=== PATIENT | female | born 1995 | race African-American/Black ===

== ENCOUNTER 2017-08-04 14:44 | Observation (INO) ==
[2017-08-04] MEDS ORDERED: NS 1,000 ML IV ONE (15:00)
[2017-08-04] MEDS ORDERED: CHARCOAL Activated 25gm/120ml SUSP PO ONE ×2 (15:00→15:46)
--- OUTSIDE RECORDS SUMMARY | 2017-08-04 15:17 | External Medical Summary ---
:1994 Author Organization [employer] Care Team Providers Name Role Phone Mariangel Miles Provider Role Unavailable Allergies, Adverse Reactions, Alerts Substance Reaction Event Type N.K.D.A. Info Not Available Non Drug Allergy Problems Problem Type Condition Code Onset Dates Condition Status Assessment Encounter for initial prescription Z30.019 Active of contraceptives, unspecified Medications Medication Code Code Instructions Start End Date Status Dosage System Date Norelgestromin- [facility] 57968-05 150-20 MCG/24HR Apr 25, as directed Eth Estradiol 20-01 Transdermal once 2016 a week times 3 weeks, then one off week Procedures Procedure Coding System Code Date OFFICE VISIT, SECURITY AND COMPLIANCE PROJECT MANAGER-LOW COMPLEXITY (30 MIN.) CPT-4 38496 2015 Vital Signs Date/Time: 2015 Height 64.25 in Weight 128.4 lbs Temperature 98.3 F Blood Pressure Diastolic 76 mm Hg Blood Pressure Systolic 113 mm Hg Cardiac Monitoring Heart Rate 70 /min BMI 21.87 Index Respiratory Rate 16 /min Results No Known Results Summary Purpose [employer] Submission
--- OUTSIDE RECORDS SUMMARY | 2017-08-04 15:17 | External Medical Summary ---
:1994 Author Organization [employer] Care Team Providers Name Role Phone Mariangel Miles Provider Role Unavailable Allergies, Adverse Reactions, Alerts Substance Reaction Event Type N.K.D.A. Info Not Available Non Drug Allergy Problems Problem Type Condition Code Onset Dates Condition Status Assessment Encounter for gynecological Z01.411 Active examination (general) (routine) with abnormal findings Medications Medication Code System Code Instructions Start Date End Date Status Dosage Ortho Evra NDC 87383-249 150-20 MCG/24HR Apr 25, as directed 0-01 Transdermal once 2016 a week times 3 weeks, then one off week, Procedures Procedure Coding System Code Date SPECIMEN HANDLING FEE CPT-4 36726 Apr 28, 2015 AFFIRM-CINDY DNA PROBE CPT-4 58940 Apr 28, 2015 WELL ADULT, EST (18-39) CPT-4 57824 Apr 28, 2015 AFFIRM-RO VAGINALIS DNA PROBE CPT-4 07656 Apr 28, 2015 AFFIRM-TRICHOMONAS VAGINAL DNA PROBE CPT-4 86002 Apr 28, 2015 Vital Signs Date/Time: Apr 28, 2015 Height 64.25 in Weight 128.0 lbs Temperature 97.7 F Blood Pressure Diastolic 70 mm Hg Blood Pressure Systolic 106 mm Hg Cardiac Monitoring Heart Rate 100 /min BMI 21.80 Index Respiratory Rate 16 /min Results Name Result Date Reference Range Unit Abnormality Flag Affirm Vaginitis Panel ----Affirm Vaginitis Source: [id number] Panel Cervix/Vaginal Collected: 04/28/15 15:40 Summary Purpose [employer] Submission
--- OUTSIDE RECORDS SUMMARY | 2017-08-04 15:17 | External Medical Summary ---
:1994 Author Organization [employer] Care Team Providers Name Role Phone Mariangel Miles Provider Role Unavailable Allergies No Known Allergies Problems No Known Problems Medications Medication Code System Code Instructions Start Date End Date Status Dosage Ortho Evra [facility] [address]-421 150-20 MCG/24HR Apr 25, as directed 0-01 Transdermal once 2016 a week times 3 weeks, then one off week, Results No Known Results Summary Purpose [employer] Submission
--- OUTSIDE RECORDS SUMMARY | 2017-08-04 15:17 | External Medical Summary ---
:1994 Author Organization [employer] Care Team Providers Name Role Phone Mariangel Milse Provider Role Unavailable Allergies No Known Allergies Problems No Known Problems Medications Medication Code System Code Instructions Start Date End Date Status Dosage Flagyl [facility] [address] 500 MG Orally BID May 02, May 09, 1 tablet -2015 Results No Known Results Summary Purpose [employer] Submission
--- OUTSIDE RECORDS SUMMARY | 2017-08-04 15:17 | External Medical Summary ---
:1994 Author Organization [employer] Care Team Providers Name Role Phone Mariangel Miles Provider Role Unavailable Allergies No Known Allergies Problems No Known Problems Medications Medication Code System Code Instructions Start Date End Date Status Dosage Flagyl [facility] [address] 500 MG Orally BID August 09August 16, 1 tablet -2015 Results No Known Results Summary Purpose [employer] Submission
--- OUTSIDE RECORDS SUMMARY | 2017-08-04 15:17 | External Medical Summary ---
:1994 Author Organization [employer] Care Team Providers Name Role Phone Mariangel Miles Provider Role Unavailable Allergies No Known Allergies Problems No Known Problems Medications No Known Medications Results No Known Results Summary Purpose [employer] Submission
--- OUTSIDE RECORDS SUMMARY | 2017-08-04 15:17 | External Medical Summary ---
:1994 Author Organization [employer] Care Team Providers Name Role Phone Mariangel Miles Provider Role Unavailable Allergies No Known Allergies Problems Problem Type Condition Code Onset Dates Condition Status Assessment Encounter for initial prescription Z30.019 Active of contraceptives, unspecified Medications Medication Code System Code Instructions Start Date End Date Status Dosage Ortho Evra [facility] [address] 150-20 MCG/24HR Apr 25, as directed 0-01 Transdermal once 2016 a week times 3 weeks, then one off week, Results No Known Results Summary Purpose [employer] Submission
--- OUTSIDE RECORDS SUMMARY | 2017-08-04 15:17 | External Medical Summary ---
:1994 Author Organization [employer] Care Team Providers Name Role Phone Mariangel Miles Provider Role Unavailable Allergies, Adverse Reactions, Alerts Substance Reaction Event Type N.K.D.A. Info Not Available Non Drug Allergy Problems Problem Type Condition Code Onset Dates Condition Status Assessment Exposure to venereal disease Z20.2 Active Medications Medication Code System Code Instructions Start Date End Date Status Dosage Azithromycin [facility][NOTE 3] 83478-037 1 GM Orally Jan 16, as directed 10-13 Procedures Procedure Coding System Code Date URINALYSIS WITH MICROSCOPIC CPT-4 50430 Jan 17, 2016 GENITAL CULTURE CPT-4 62669 Jan 17, 2016 OFFICE VISIT, EST-LOW COMPLEXITY (15 MIN.) CPT-4 56945 Jan 17, 2016 Vital Signs Date/Time: Jan 17, 2016 Temperature 98.2 F Height 64.25 in Weight 122 lbs Blood Pressure Diastolic 60 mm Hg Blood Pressure Systolic 110 mm Hg Cardiac Monitoring Heart Rate 66 /min BMI 20.78 Index Oximetry 99 % Respiratory Rate 14 /min Results Name Result Date Reference Range Unit Abnormality Flag Urinalysis with Microscopic ----Epithelial Cells 5-10 [id number] /HPF ----WBC, Urine 5-10 [id number] 0-4 /HPF * ----Hyaline Casts 4-6 79678984 0-3 /LPF * ----Specific [place] 1.029 [id number] 1.003-1.030 ----Bilirubin Negative 26523911 Negative ----Nitrites Negative 32687932 Negative ----Protein Negative [id number] Negative ----Blood Negative [id number] Negative ----Urobilinogen 0.2 90185132 <1.0 mg/dL ----pH 5.0 28212160 5.0-8.0 ----RBC, Urine 0-4 [id number] 0-4 /HPF ----Leukocyte Esterase Negative [id number] Negative ----Appearance Turbid 82316133 * ----Color Yellow [id number] ----Glucose, Urine Negative 20160117 Negative ----Ketones Negative 20160117 Negative Summary Purpose [employer] Submission
--- OUTSIDE RECORDS SUMMARY | 2017-08-04 15:17 | External Medical Summary ---
:1994 Author Organization [employer] Care Team Providers Name Role Phone Mariangel Miles Provider Role Unavailable Allergies, Adverse Reactions, Alerts Substance Reaction Event Type N.K.D.A. Info Not Available Non Drug Allergy Problems Problem Type Condition Code Onset Dates Condition Status Assessment Acute vaginitis N76.0 Active Assessment Other specified noninflammatory N89.8 Active disorders of vagina Assessment Encounter for initial prescription Z30.013 Active of injectable contraceptive Medications No Known Medications Procedures Procedure Coding System Code Date URINALYSIS WITH MICROSCOPIC CPT-4 33826 August 02, 2015 OFFICE VISIT, EST-LOW COMPLEXITY (15 MIN.) CPT-4 92157 August 02, 2015 TEST, IN HOUSE CPT-4 80450 August 02, 2015 AFFIRM-TRICHOMONAS VAGINAL DNA PROBE CPT-4 79243 August 02, 2015 AFFIRM-CINDY DNA PROBE CPT-4 08748 August 02, 2015 AFFIRM-RO VAGINALIS DNA PROBE CPT-4 85253 August 02, 2015 Vital Signs Date/Time: August 02, 2015 Temperature 98.5 F Height 64.25 in Weight 123.8 lbs Blood Pressure Diastolic 62 mm Hg Blood Pressure Systolic 95 mm Hg Cardiac Monitoring Heart Rate 70 /min BMI 21.08 Index Respiratory Rate 16 /min Results Name Result Date Reference Range Unit Abnormality Flag Urinalysis with Microscopic ----Epithelial Cells 2-5 [id number] /HPF ----WBC, Urine 2-4 94647534 0-4 /HPF ----Specific [place] 1.029 89250536 1.003-1.030 ----Bilirubin Negative 78978248 Negative ----Nitrites Negative 61404796 Negative ----Protein Negative 52126541 Negative ----Blood Negative [id number] Negative ----Urobilinogen 0.2 25705956 <1.0 mg/dL ----pH 5.0 09221972 5.0-8.0 ----RBC, Urine 0-4 11030264 0-4 /HPF ----Leukocyte Esterase Negative 20150802 Negative ----Appearance Turbid 20150802 * ----Color Yellow 20150802 ----Glucose, Urine Negative 20150802 Negative ----Ketones Negative [id number] Negative Summary Purpose [employer] Submission
--- OUTSIDE RECORDS SUMMARY | 2017-08-04 15:18 | External Medical Summary | Continuity of Care Document ---
:1994 Author Organization [facility] Allergies Active Description Code Type Severity Reaction Onset Reported/ Identified Relationship Clinical to Patient Status Yes No Known 90956 3 N/A N/A Drug 0 Allergies Yes Penicillins amoxi Aller S hives and 09/13/2015 cilli gy difficult n y breathing Yes No Known No Aller N/A N/A 05/31/2016 Allergies Known gy Aller gies Medications Medication Packaging Start Date Stop Date Route Dosage Sig Packet 09/26/2015 AZITHROMYCIN 6 take 1 packet by oral route dissolved in 2 ounces of water as a single dose PUFF 09/27/2015 1 Albuterol Sulfate Q4H Pnv TAB 09/27/2015 1 with DAILY Ca,No.74/Iron/FA PUFF 09/27/2015 1 Fluticasone BID Propionate SPRAY 09/27/2015 1 Fluticasone DAILY Propionate MG 09/27/2015 10 Montelukast DAILY Sodium Tablet 10/12/2015 ZITHROMAX 6 take 2 tablet by oral route once. Repeat. 1 10/12/2015 NEXPLANON 7 PRESCRIBED Tablet 10/13/2015 ZITHROMAX 6 take 2 tablet by oral route once. Repeat. 05/31/2016 PO 250 mg O Azithromycin Package 08/14/2016 SPRINTEC take 1 tablet by oral route every day Problems Date Dx Coded Attending Type Code Diagnosis Diagnosed By 09/27/2015 Harvey Luis O03.1 Incomplete with delayed or excessive hemo 09/28/2015 Harvey Luis O03.1 Incomplete with delayed or excessive hemo Procedures There is no data. Results Test Result Range L160.0105 - 09/26/15 20:06 INR 1.50 0.81-1.09 L160.0110 - 09/26/15 20:06 PTT 32.7 SEC 24-36 L100.0050 - 09/26/15 20:07 WBC - WHITE BLOOD COUNT 4.4 T/MM3 4.5-11.0 RED BLOOD COUNT 3.87 M/MM3 4.00-5.20 HGB - HEMOGLOBIN 10.9 GM/DL 12-16 HCT - HEMATOCRIT 32.8 % 36-46 MEAN CORPUSCULAR VOLUME 84.8 UM3 80-100 MEAN CORPUSCULAR HGB 28.2 UUG 26-34 MEAN CORPUSCULAR HGB CONC(MCHC 33.2 GM/DL 31-37 RDW STANDARD DEVIATION 37.8 FL 36.9-50.2 PLT - PLATELET COUNT 197 T/MM3 130-400 MEAN PLATELET VOLUME 9.9 UM3 9.4-12.4 NEUTROPHILS % (AUTO) 60.3 % 33-66 LYMPHOCYTES % (AUTO) 27.9 % 23-45 MONOCYTES % (AUTO) 10.0 % 0-9.0 EOSINOPHILS % (AUTO) 1.4 % 0-4 BASOPHILS % (AUTO) 0.2 % 0-2 IMMATURE GRANULOCYTE % (AUTO) 0.2 % 0.0-0.5 NEUTROPHILS # (AUTO) 2.6 T/MM3 1.8-7.7 LYMPHOCYTES # (AUTO) 1.2 T/MM3 1-4.8 MONOCYTES # (AUTO) 0.4 T/MM3 0-0.8 EOSINOPHILS # (AUTO) 0.1 T/MM3 0-0.5 BASOPHILS # (AUTO) 0.0 T/MM3 0-0.2 IMMATURE GRANULOCYTE # (AUTO) 0.01 T/MM3 0.00-0.03 L200.3940 - 09/26/15 20:07 PREG QUAL, SERUM TEST POSITIVE NEGATIVE L200.0050 - 09/26/15 20:07 ICTERUS < 2 0-7 HEMOLYSIS < 15 0-25 L200.3902 - 09/26/15 20:07 HCG-QUANTITATIVE 2062.0 mIU/mL B100.0700 - 09/26/15 20:08 BLOOD TYPE O POSITIVE ANTIBODY SCREEN NEGATIVE B110.1099 - 09/26/15 20:08 BBT5 O POSITIVE L749.2999 - 02/23/16 14:30 SVSV80R Negative L749.5000 - 02/23/16 14:30 LHEPCAB-A Negative M750.2640 - 02/23/16 14:30 L750.2300 - 02/23/16 14:30 C.TRACH SOURCE URINE CHLAMYDIA TRACHOMATIS - AMS NEGATIVE NEGATIVE NEISSERIA GONORRHOEAE - AMS NEGATIVE NEGATIVE N.GONORRHOEAE SOURCE - AMS URINE L905.0701 - 05/31/16 10:39 LUSPEC-C CLEANCATCH-MIDSTREAM LUCOL-C BROWN YELLOW LUTURB-C CLOUDY CLEAR LUSG-C 1.025 1.015-1.025 LUPH-C 5.0 5.0-8.0 LULEU-C NEGATIVE NEGATIVE LUNIT-C NEGATIVE NEGATIVE LUPRO-C NEGATIVE NEGATIVE LUGLU-C NEGATIVE NEGATIVE LUKET-C NEGATIVE NEGATIVE LUURO-C NORMAL EU/DL NORMAL LUBILI-C NEGATIVE NEGATIVE LUBLO-C NEGATIVE NEGATIVE L905.0625 - 05/31/16 10:39 LUPREGT-C NEGATIVE NEGATIVE L750.2300 - 05/31/16 11:04 C.TRACH SOURCE URINE CHLAMYDIA TRACHOMATIS - AMS Positive Negative NEISSERIA GONORRHOEAE - AMS Negative Negative N.GONORRHOEAE SOURCE - AMS URINE Encounters ACCT Visit Discharge Status Pt. Type Provider Facility Loc./Unit Complaint No. Date/Time [id number] 08/14/2016 08/14/2016 CLS Outpatient Kang, 13:15:00 23:59:59 [place] Art [id number] 10/14/2015 10/14/2015 CLS Outpatient Kang, 08:21:00 23:59:59 Daly Art [id number] 10/13/2015 10/13/2015 CLS Outpatient Kang, 11:47:00 23:59:59 Daly Art [id number] 10/12/2015 10/12/2015 CLS Outpatient Kang, 16:15:00 23:59:59 Daly Kaelyn [id number] 09/26/2015 09/26/2015 CLS Outpatient Toby, 21:48:00 23:59:59 Harvey Allen [id number] 09/26/2015 09/26/2015 CLS Outpatient Toby, 08:35:00 23:59:59 Harvey Allen [id number] 09/22/2015 09/22/2015 CLS Outpatient Toby, 14:15:00 23:59:59 Harvey Allen [id number] 08/30/2015 08/30/2015 [facility] Outpatient Munguia, 14:54:00 23:59:59 Nora Delgadillo [id number] 05/31/2016 05/31/2016 DIS Emergency Krishna [facility] [address] 10:16:00 11:10:00 [facility] [id number] 02/23/2016 02/23/2016 DIS Emergency Krishna [facility] [address] 13:04:00 14:10:00 [facility] [id number] 01/31/2016 01/31/2016 DIS Emergency Krishna [facility] [address] 13:40:00 14:30:00 [facility] [id number] 09/13/2015 09/13/2015 [place] [id number] 16:17:00 18:44:00 [facility] [id number] 08/04/2017 Document [id number] 14:56:00 Registration [id number] 09/26/2015 Document [id number] 20:05:00 Registration
[2017-08-04] MEDS ORDERED: ONDANSETRON 4 MG/2 ML INJECTION IVP ONE (15:46)
--- NOTE | 2017-08-04 16:19 | Emergency Department Report ---
Overdose HPI - General Chief Complaint: Overdose <eb 08/04/17 16:59> Stated Complaint: od/suicidal <eb 08/04/17 16:59> Time Seen by Provider: 08/04/17 14:55 <08/04/17 16:59> Source: patient, EMS <Joy Garcia 08/04/17 16:21> Mode of arrival: EMS <JoseJoy Russo 08/04/17 16:21> Limitations: altered mental status <JoseJoy Alejandro Rafaela 08/04/17 16:21> - History of Present Illness HPI Narrative: PT presents per EMS after having taken approximately 15 sleep aids which contain 25mg of Diphenhydramine. EMS reports ingestion was with intent to harm self. PT concurs however is unable to detail rationale. <Joy Garcia 08/04/17 16:21> MD complaint: intentional overdose <Joy Garcia 08/04/17 16:21> Onset (ago): minute(s) <Joy Garcia 08/04/17 16:21> diphenhydramine Strength of Substance: 25 <Joy Garcia 08/04/17 16:21> Number of Pills Ingested: 15 <Joy Garcia 08/04/17 16:21> Total Dose: 375 <Joy Garcia 08/04/17 16:49> Intent: unwilling to say <Joy Garcia 08/04/17 16:21> How Overdose Was Discovered: family/friend present at time <Joy Garcia 08/04/17 16:21> - Related Data Home Medications Medication Instructions Recorded Confirmed No known Home medications [No home 08/04/17 08/04/17 meds] <eb 08/04/17 16:59> Allergies Allergy/AdvReac Type Severity Reaction Status Date / Time No Known Allergies Allergy Verified 08/04/17 15:42 <eb 08/04/17 16:59> Review of Systems Limitations: ROS unobtainable due to patient's medical condition <Joy Garcia 08/04/17 16:21> Physical Exam - Limitations Limitations: altered mental status <Joy Garcia 08/04/17 16:21> - General General appearance: lethargic <Joy Garcia 08/04/17 16:21> - Normal Exams: Head:: Normocephalic without trauma <Joy Garcia 08/04/17 16:21> Chest/Respirations:: Clear all riojas, with good airflow, and symmetry bilaterally <Joy Garcia 08/04/17 16:21> Abdomen:: Bowel sounds positive, soft, non-tender, non-distended <Joy Garcia 08/04/17 16:21> Musculoskeletal:: No tenderness, or deformity noted, good range of motion, all extremities <Joy Garcia 08/04/17 16:21> Integumentary:: No rashes <Joy Garcia 08/04/17 16:21> Neurological:: Patient is alert, and oriented, cranial nerves, motor/sensory/ cerebellar, exams w/o gross deficits, to observation <Joy Garcia 16:21> Psychiatric:: Patient exhibits, appropriate attention, emotion and affect < Joy Garcia 08/04/17 16:21> - Eye Eye exam: Present: normal appearance, PERRL (slow and pinpoint) <Joy Garcia 08/04/17 16:21> - Cardiovascular Cardiovascular exam: Present: regular rate, tachycardia <Joy Garcia 08/04/17 16:21> Course Vital Signs Temperature 97.9 F 08/04/17 14:45 Pulse Rate 122 H 08/04/17 14:45 Respiratory Rate 14 08/04/17 14:45 Blood Pressure 170/112 H 08/04/17 14:45 Pulse Oximetry 100 08/04/17 14:45 Temperature 97.9 F 08/04/17 14:45 Pulse Rate 122 H 08/04/17 14:45 Respiratory Rate 14 08/04/17 14:45 Blood Pressure 170/112 H 08/04/17 14:45 Pulse Oximetry 100 08/04/17 14:45 <Sony Michel M - 08/04/17 16:59> Overdose - MDM Narrative Medical decision making narrative: NG placed for gastric lavage with significant amount of pill fragments returned. After a period of intermittent suction pt given 25 of Charcoal. Vital signs improving from 120-130 to 80-90s and BP trending downward. Pt is much more alert and interactive with and after NG placement. Labs reviewed. Hospitalist notified and will admit for overdose. <JoseJoy - 08/04/17 16:49> - Differential Diagnosis Likely: suicide attempt by multiple drug overdose, drug overdose <Jaqueline Garciaan Alejandro - 08/04/17 16:21> - Lab Data Attestation: I reviewed the patient's lab results. <NicaJaqueline paigean - 08/04 16:49> Result diagrams: 08/04/17 14:20 08/04/17 14:20 [facility] 08/04/17 16:59> Lab Results 08/04/17 08/04/17 08/04/17 Range/Units 14:20 14:20 14:20 WBC 3.5 L (4.5-11.0) T/MM3 RBC 4.99 (4.00-5.20) M/MM3 Hgb 13.7 (12-16) GM/DL Hct 41.4 (36-46) % MCV 83.0 (80-100) UM3 MCH 27.5 (26-34) UUG MCHC 33.1 (31-37) GM/DL RDW Std Deviation 36.4 L (36.9-50.2) FL Plt Count 262 (130-400) T/MM3 MPV 10.5 (9.4-12.4) UM3 Immature Gran % (Auto) 0.0 (0.0-0.5) % Neut % (Auto) 36.5 (33-66) % Lymph % (Auto) 53.8 H (23-45) % Kerr % (Auto) 7.7 (0-9.0) % Eos % (Auto) 1.7 (0-4) % Baso % (Auto) 0.3 (0-2) % Neut # (Auto) 1.3 L (1.8-7.7) T/MM3 Lymph # (Auto) 1.9 (1-4.8) T/MM3 Kerr # (Auto) 0.3 (0-0.8) T/MM3 Eos # (Auto) 0.1 (0-0.5) T/MM3 Baso # (Auto) 0.0 (0-0.2) T/MM3 Abs Immat Gran (auto) 0.00 (0.00-0.03) T/MM3 Turbidity < 20 (0-20) Sodium 148 H (134-144) MEQ/L Potassium 3.5 L (3.6-5) MEQ/L Chloride 106 (98-107) MEQ/L Carbon Dioxide 26 (22-30) MEQ/L Anion Gap 16 H (5-15) meq/L BUN 9.0 (7-17) MG/DL Creatinine 0.8 (0.7-1.2) mg/dL GFR Calculation 89 BUN/Creatinine Ratio 11 (6-26) RATIO Glucose 88 (65-110) MG/DL Calculated Osmolality 282 H (261-280) MOSM/KG Calcium 9.5 (8.4-10.2) MG/DL Total Bilirubin 0.60 (0.20-1.30) MG/DL Icterus Index < 2 (0-7) AST 26 (14-36) U/L ALT 19 (1-35) U/L Alkaline Phosphatase 46 (38-126) U/L Total Protein 8.6 H (6.3-8.2) g/dL Albumin 5.0 (3.5-5.0) g/dL Globulin 3.6 (2.4-3.6) G/DL Albumin/Globulin Ratio 1.4 (1.1-2.2) RATIO TSH 1.27 (0.47-4.68) mIU/L Specimen Hemolysis < 15 (0-25) Ur Collection Type Urine Color (YELLOW) Urine Clarity Urine pH (5.0-8.0) Ur Specific [place] (1.015-1.025) Urine Protein (NEGATIVE) Urine Glucose (UA) (NEGATIVE) Urine Ketones (NEGATIVE) Urine Occult Blood (NEGATIVE) Urine Nitrate (NEGATIVE) Urine Bilirubin (NEGATIVE) Urine Urobilinogen (NORMAL) EU/DL Ur Leukocyte Esterase (NEGATIVE) Urine RBC (0-3) /HPF Urine WBC (0-5) /HPF Ur Squamous Epith Cells Urine Bacteria (NEGATIVE) Ur Culture Indicated? Urine Test (Negative) Salicylates < 1.0 L (2-20) MG/DL Urine Opiates Screen ng/mL Ur Oxycodone Screen ng/mL Urine Methadone Screen ng/mL Ur Propoxyphene Screen ng/mL Acetaminophen < 10 L (10-30) UG/ML Ur Barbiturates Screen ng/mL U Tricyclic Antidepress ng/mL Ur Phencyclidine Scrn ng/mL Ur Amphetamines Screen ng/mL U Methamphetamines Scrn ng/mL U Benzodiazepines Scrn ng/mL Urine Cocaine Screen ng/mL U Cannabinoids Screen ng/mL 08/04/17 08/04/17 08/04/17 Range/Units 16:05 16:05 16:05 WBC (4.5-11.0) T/MM3 RBC (4.00-5.20) M/MM3 Hgb (12-16) GM/DL Hct (36-46) % MCV (80-100) UM3 MCH (26-34) UUG MCHC (31-37) GM/DL RDW Std Deviation (36.9-50.2) FL Plt Count (130-400) T/MM3 MPV (9.4-12.4) UM3 Immature Gran % (Auto) (0.0-0.5) % Neut % (Auto) (33-66) % Lymph % (Auto) (23-45) % Kerr % (Auto) (0-9.0) % Eos % (Auto) (0-4) % Baso % (Auto) (0-2) % Neut # (Auto) (1.8-7.7) T/MM3 Lymph # (Auto) (1-4.8) T/MM3 [place] # (Auto) (0-0.8) T/MM3 Eos # (Auto) (0-0.5) T/MM3 Baso # (Auto) (0-0.2) T/MM3 Abs Immat Gran (auto) (0.00-0.03) T/MM3 Turbidity (0-20) Sodium (134-144) MEQ/L Potassium (3.6-5) MEQ/L Chloride (98-107) MEQ/L Carbon Dioxide (22-30) MEQ/L Anion Gap (5-15) meq/L BUN (7-17) MG/DL Creatinine (0.7-1.2) mg/dL GFR Calculation BUN/Creatinine Ratio (6-26) RATIO Glucose (65-110) MG/DL Calculated Osmolality (261-280) MOSM/KG Calcium (8.4-10.2) MG/DL Total Bilirubin (0.20-1.30) MG/DL Icterus Index (0-7) AST (14-36) U/L ALT (1-35) U/L Alkaline Phosphatase (38-126) U/L Total Protein (6.3-8.2) g/dL Albumin (3.5-5.0) g/dL Globulin (2.4-3.6) G/DL Albumin/Globulin Ratio (1.1-2.2) RATIO TSH (0.47-4.68) mIU/L Specimen Hemolysis (0-25) Ur Collection Type Urine, cath straight Urine Color Yellow (YELLOW) Urine Clarity Clear Urine pH 7.0 (5.0-8.0) Ur Specific [place] <=1.005 L (1.015-1.025) Urine Protein Negative (NEGATIVE) Urine Glucose (UA) Negative (NEGATIVE) Urine Ketones Negative (NEGATIVE) Urine Occult Blood 3+ A (NEGATIVE) Urine Nitrate Negative (NEGATIVE) Urine Bilirubin Negative (NEGATIVE) Urine Urobilinogen 0.2 (NORMAL) EU/DL Ur Leukocyte Esterase Negative (NEGATIVE) Urine RBC 3-5 H (0-3) /HPF Urine WBC 1-3 (0-5) /HPF Ur Squamous Epith Cells 5-10 Urine Bacteria Trace H (NEGATIVE) Ur Culture Indicated? Cult not indicated Urine Test Negative (Negative) Salicylates (2-20) MG/DL Urine Opiates Screen Negative ng/mL Ur Oxycodone Screen Negative ng/mL Urine Methadone Screen Negative ng/mL Ur Propoxyphene Screen Negative ng/mL Acetaminophen (10-30) UG/ML Ur Barbiturates Screen Negative ng/mL U Tricyclic Antidepress Negative ng/mL Ur Phencyclidine Scrn Negative ng/mL Ur Amphetamines Screen Negative ng/mL U Methamphetamines Scrn Negative ng/mL U Benzodiazepines Scrn Negative ng/mL Urine Cocaine Screen Negative ng/mL U Cannabinoids Screen Negative ng/mL <AugustSony M - 08/04/17 16:59> - EKG Data EKG #1 EKG attestation: Yes: I reviewed and interpreted this EKG. <08/04 16:59> Yes: I reviewed and interpreted this EKG. <JoseJoy 08/04/17 16:49> EKG shows normal: sinus rhythm, axis, intervals, QRS complexes <eb 16:59> sinus rhythm <SanazlydiaJoy 08/04/17 16:49> Rate: tachycardia <08/04/17 16:59> tachycardia <JoseJoy 08/04/17 16:49> Rhythm: SVT <SanazlydiaJoy 08/04/17 16:49> When compared to previous EKG there are: previous EKG unavailable <08/04/17 16:59> Interpretation: nonspecific ST-T wave changes <08/04/17 16:59> Disposition Clinical Impression: Drug overdose Qualifiers: Encounter type: initial encounter Injury intent: intentional self-harm Qualified Code(s): T50.902A - Poisoning by unspecified drugs, medicaments and biological substances, intentional self-harm, initial encounter <08/04/17 16:59> [place]: [place] [facility] [place] <08/04/17 16:59> Condition: Improved <08/04/17 16:59> Instructions: <08/04/17 16:59> Prescriptions: No Action No known Home medications [No home meds] 0 #0 misc <08/04/17 16:59> Referrals: Mariangel Miles APRN [Primary Care Provider] - <eb 08/04/17 16:59> Forms: <08/04/17 16:59> Time of Disposition: 16:49 <Joy Garcia 08/04/17 16:49> - Seen By: midlevel <Joy Garcia 08/04/17 16:49>
--- NOTE | 2017-08-04 17:02 | History & Physical Report ---
History of Present Illness Date: 08/04/17 Chief complaint: intentional overdose HPI: She is 22-year-old female who is brought to the emergency room today by EMS for evaluation following an intentional overdose. Reported that patient ingested 15- 17 tablets of Benadryl 25 milligrams per to have. She initially did verbalize that she intentionally overdosed in an attempts to hurt herself. Basic labs were obtained. Sodium was found with elevated at 148, potassium 3.5. Urinalysis shows 3+ blood, 3-5 RBCs with trace bacteria. Urine toxicology is negative. Initially. Patient was tachycardic heart rate in the 122. NG tube was placed and patient was given 25 grams of activated charcoal. IV fluids bolus of 1 liter was initiated. Patient remained somewhat somnolent, unable to answer questions. Given intention renal overdose. The hospitalist services were contacted and accepted patient for admission to the ICU as an outpatient observation. Review of Systems ROS unobtainable: due to mental status Past Medical History Medical History Updates: Asthma Surgical History: D & C- 2015 Family History: Unable to Obtain - Social History Substance use type: does not use Medications Home Medications Medication Instructions Recorded Confirmed Type No known Home medications [No home 08/04/17 08/04/17 History meds] Allergies Allergy/AdvReac Type Severity Reaction Status Date / Time No Known Allergies Allergy Verified 08/04/17 15:42 Exam Vital Signs: Temperature 97.9 F 08/04/17 14:45 Pulse Rate 122 H 08/04/17 14:45 Respiratory Rate 14 08/04/17 14:45 Blood Pressure 170/112 H 08/04/17 14:45 Pulse Oximetry 100 08/04/17 14:45 Height/Weight/BMI: Height 1.63 m Weight 60 kg - Constitutional Present: mild distress, well nourished, well developed - Routine HEENT Exam ENT: Present: mucous membranes moist, dentition normal Comments: Pupils sluggish - Routine Respiratory Exam Present: CTA bilaterally. Absent: wheezes - Routine Cardiovascular Exam Present: RRR, S1, S2. Absent: murmur - Routine Abdominal Exam Present: soft, normoactive bowel sounds, non distended. Absent: tenderness - Routine Extremities Exam Present: normal capillary refill - Routine Skin Exam Present: dry, warm - Routine Neurological Exam Present: altered mental status Non verbal - does not follow commands - Routine Psychiatric Exam Present: depressed, unable to assess Comments: Flat affect- Non verbal Results - Labs CBC & Chem 7: 08/04/17 14:20 08/04/17 14:20 Assessment and Plan (1) Intentional diphenhydramine overdose Current visit: Yes Status: Acute Assessment and Plan: Impression Intentional diphenhydramine overdose Altered mentation Tachycardia Plan Admit patient to ICU under the care of Dr. guzmán for intentional overdose with altered mentation. NG tube is placed in the emergency room. Patient was given 25 grams of oral charcoal. Tachycardia has improved with IV fluids. Continue to monitor on telemetry 1/2 NS with 20 KCL for hydration Zofran available as needed for nausea Check CBC and BMP tomorrow morning to follow blood counts, renal function and electrolytes Once patient is medically stable. She will need psychiatric evaluation and recommendations. SCDs to the lateral lower extremity for DVT prophylaxis. Will discuss further orders and plan of care with attending, Dr Waggoner It appears patient's primary care is [facility] Difficult to obtain any further information as patient is currently nonverbal DVT Prophylaxis: SCD's Resuscitation Status: Full Code - Time spent with patient Time with patient PN: 35 minutes - Physician Narrative Narrative: Date: 08/04/17 Time: 1655 Hospital Course Summary Disclaimer: The visit summary below is not to be considered part of the above Progress Note. Hospital Course: Impression Intentional diphenhydramine overdose Altered mentation Tachycardia Plan Admit patient to ICU under the care of Dr. guzmán for intentional overdose with altered mentation. NG tube is placed in the emergency room. Patient was given 25 grams of oral charcoal. Tachycardia has improved with IV fluids. Continue to monitor on telemetry 1/2 NS with 20 KCL for hydration Zofran available as needed for nausea Check CBC and BMP tomorrow morning to follow blood counts, renal function and electrolytes Once patient is medically stable. She will need psychiatric evaluation and recommendations. SCDs to the lateral lower extremity for DVT prophylaxis. Will discuss further orders and plan of care with attending, Dr Waggoner It appears patient's primary care is [facility] Difficult to obtain any further information as patient is currently nonverbal
[2017-08-04] MEDS ORDERED: ONDANSETRON 4 MG/2 ML INJECTION IVP PRN (17:34)
[2017-08-04 17:40] VITALS: BMI 22.1
[2017-08-04] MEDS: 1/2 NS with KCL 20mEq 1,000 ML IV SCH (17:57)
[2017-08-04] MEDS: ACETAMINOPHEN 500 MG TABLET PO PRN (23:43)
[2017-08-05] MEDS: 1/2 NS with KCL 20mEq 1,000 ML IV SCH (03:32)
--- NOTE | 2017-08-05 09:23 | Neuropsychiatric Consult ---
[facility] Date: 08/05/17 Requesting Physician: Kina Perry Reason for Consultation: Safety assessment Start Time: 10:00 Stop Time: 10:40 History of Present Illness: Patient is a 22-year-old single, part-time employed, -Al[place]ian female who was admitted [place] [facility] [place]04[place]17 after a suicide attempt by overdose on #15- 17 Benadryl 25mg tablets. Patient has admitted that this was an intentional act of self harm. Psychiatry was consulted for a safety assessment. Patient was cooperative and easily engaged during interview. She endorses many recent stressors. She moved to [place] with her 4-year-old son's father ~3 years ago and thus the majority of her family is in [place]. She states that many of her younger siblings are either struggling or in trouble, her mother is unstable and her father has been in poor health and she worries frequently about all of them. She has now from her son's father since the move and it sounds like this relationship is a bit tumultuous, but she has no other support here or in [place]. (Patient and her siblings were previously in foster care and had to separate after her grandmother .) Her son lives with her but his father is involved in his life as well. Patient states that she has had poor sleep for the past 2 weeks, with frequent nighttime wakenings. She feels very alone and has limited motivation to do things, decreased energy, and decreased appetite. She states she does not have any friends here to spend time with. She also endorses frequent anxiety. She denies HI, paranoia or AVH. She does say she feels like she can "feel her son's father's presence" in her room at night even when he was not there. She says that last had SI months ago (prior to night of admission) but didn't act on it at that time. Patient denies any hx of symptoms consistent with bipolar disorder or PTSD. Past psych hx: Patient was hospitalized for ~2 weeks as an adolescent as she was scratching and had SI after her parents' divorce. She feels symptoms after recent breakup were very similar to that time in her life. She is unsure of diagnoses or medications used. She denies any current self-harming. She denies any current/recent psychotropic medication use. She denies any other suicide attempts. Depression: Increased Anxiety, Loss of Interest in Activities, Isolating Oneself From Friends and Family, Increased Fatigue, Difficulty Sleeping, Sleeping More Than Usual (during the day), Recurrent Thoughts of or Suicide, Changes in Appetite PFSH Patient Stated Medical History Depression Yes Medical History Updates: Asthma Surgical History: D & C- 2016 Family History: Patient states her mother has been diagnosed with bipolar disorder and her brother was also psychiatrically hospitalized after their parents' divorce. - Social History Smoking status: Never smoker Substance use type: does not use Alcohol intake frequency: other (States that she drinks "every once in a while" but did get intoxicated ~2 days prior to admission) Housing: apartment Household members: children (4-year-old son) Current occupational status: employed (part-time at [employer]) Does patient use chewing tobacco?: No Social history: Patient dropped out of school in the 10th grade. She was in the foster system, along with her other siblings. She moved from [place] to [place] with her son 's father ~3 years ago. Her son is now 4 and lives with her primarily. She works part-time at [employer]. She and her son's father have but continue to have frequent contact as he is involved in their son's life. Review of Systems - Psychiatric Psychiatric: Present: as per [facility] Mental Status Exam Vitals: Last Vital Signs Temp 98.6 F 08/05/17 04:00 Pulse 54 L 08/05/17 07:52 Resp 14 08/05/17 06:30 BP 117/74 08/05/17 06:01 Pulse Ox 99 08/05/17 06:30 Height: 1.63 m Weight: 58.4 kg - Mental Status Exam Muscle Strength/Tone: Normal Dressing: Casual Grooming: Good Attitude: Cooperative Motor Activity: Normal Eye Contact: Good Speech: Normal Volume: Normal Rhythm: Appropriate Rhythm Sensory: Alert Orientation: Oriented X4 Mood: Depressed Affect: Sad Rate of Thoughts: Appropriate Rate Thought Organization: Organized Associations: Intact Abstract Reasoning: Intact, able to abstract Thought Content: Ruminations Perception/Psychotic: Perception Normal Language: Naming Intact Fund of Knowledge: Appropriate (Average; has 10th grade education) Memory: Grossly Intact Suicidal Ideation: Other (s/p suicide attempt by overdose on Benadryl) Homicidal Ideation: Denies Insight: Limited Judgement: Limited Impulse Control: Fair - Laboratory Result Diagrams: 08/05/17 04:40 08/05/17 04:40 Laboratory Results - last 24 hr 08/05/17 08/05/17 04:40 04:40 WBC 4.7 RBC 3.72 L Hgb 10.2 L D Hct 31.6 L D MCV 84.9 MCH 27.4 MCHC 32.3 RDW Std Deviation 36.2 L Plt Count 187 MPV 10.0 Immature Gran % (Auto) 0.2 Neut % (Auto) 37.1 Lymph % (Auto) 53.1 H Runnels % (Auto) 8.1 Eos % (Auto) 1.3 Baso % (Auto) 0.2 Neut # (Auto) 1.7 L Lymph # (Auto) 2.5 Runnels # (Auto) 0.4 Eos # (Auto) 0.1 Baso # (Auto) 0.0 Abs Immat Gran (auto) 0.01 Turbidity < 20 Sodium 143 Potassium 3.6 Chloride 110 H Carbon Dioxide 26 Anion Gap 7 BUN 5.0 L Creatinine 0.8 GFR Calculation 89 BUN/Creatinine Ratio 6 Glucose 84 Calculated Osmolality 271 Calcium 8.0 L D Magnesium 1.8 Icterus Index < 2 Specimen Hemolysis < 15 Assessment and Plan (1) Suicide attempt Problem details: Intentional overdose on diphenhydramine Current visit: Yes Status: Acute (2) Major depressive disorder, recurrent episode, severe Current visit: Yes Status: Acute r/o Generalized Anxiety Disorder Recommend inpatient psychiatric stabilization as patient has stated that overdose was a suicide attempt, does not have any established psychiatric providers, and states that she has no support locally and has to take care of her 4-year-old son. CM notified; PV contacted for screen as patient is uninsured. Do not let patient leave AMA; please place court hold and contact this ticket writer if patient attempts to leave.
--- NOTE | 2017-08-05 11:07 | Progress Note ---
- Date 08/05/17 Subjective: The patient was seen this morning in her room. When asked if she still feels depressed, she stated she feels "tired". She denies any pain. She denies dyspnea. She denies nausea. She states she ate breakfast without difficulties. She states she is currently on her period. She denies history of asthma. She states she had a miscarriage and it sounds like had a D&C afterwards. She denies any other surgeries. She denies any chronic medical problems. She states she was hospitalized in a psychiatric facility for approximately 2 weeks years ago in [place]. She does not know the psychiatric diagnosis that she was given at that time. She states she does not have any family here in [place]. She states she moved here 3 years ago with her child's father. She states she has a 4-year-old who is currently with his grandparents. She denies being on any medications currently, including control. Objective Vital signs: Temperature 98.3 F 08/05/17 08:00 Pulse Rate 98 08/05/17 11:00 Respiratory Rate 19 08/05/17 11:00 Blood Pressure 121/60 08/05/17 10:46 Pulse Oximetry 99 08/05/17 11:00 Rhythm: Sinus Tachycardia Height/Weight/BMI: Height 1.63 m Weight 58.4 kg Body Mass Index 22.1 Comments: Afebrile, heart rate 50s to 80s, blood pressures 90s to 120s systolic, O2 sat 100% on room air GEN-awake, mildly drowsy, no acute distress HEENT-sclera anicteric, pupils are equal NECK-supple CV-regular rate and rhythm CHEST-clear to auscultation bilaterally ABD-soft, nontender with positive bowel sounds -no Maki EXT-no edema NEURO-no focal deficits SKIN-warm and dry and without rashes Results - Labs CBC & Chem 7: 08/05/17 04:40 08/05/17 04:40 Labs: Calcium 8.0, magnesium 1.8. Urine drug screen negative. Salicylates and acetaminophen are undetectable. Urine test was negative. UA did show signs of blood, but the patient is currently menstruating. Assessment and Plan (1) Intentional diphenhydramine overdose Current visit: Yes Status: Acute Assessment and Plan: Impression Intentional diphenhydramine overdose Altered mentation-resolved Tachycardia-resolved Anemia-? Chronic-hemoglobin was 10.9 on 09/26/2015 and is 10.[address] Starkey, psychiatrist was consulted and recommends inpatient psychiatric treatment. Per review has been called to screen the patient for inpatient psychiatric treatment. Discussed with Dr. Starkey and case management. At this point, the patient appears medically stable to transfer to an inpatient psychiatric facility. We'll discuss with case management. DC IV fluids Continue SCDs for DVT prophylaxis The patient may not leave AGAINST MEDICAL ADVICE. DVT Prophylaxis: SCD's Resuscitation Status: Full Code - Physician Narrative Narrative: Date: 08/05/17 Time: 1104 Hospital Course Summary Disclaimer: The visit summary below is not to be considered part of the above Progress Note. Hospital Course: Impression Intentional diphenhydramine overdose Altered mentation Tachycardia Plan Admit patient to ICU under the care of Dr. guzmán for intentional overdose with altered mentation. NG tube is placed in the emergency room. Patient was given 25 grams of oral charcoal. Tachycardia has improved with IV fluids. Continue to monitor on telemetry 1/2 NS with 20 KCL for hydration Zofran available as needed for nausea Check CBC and BMP tomorrow morning to follow blood counts, renal function and electrolytes Once patient is medically stable. She will need psychiatric evaluation and recommendations. SCDs to the lateral lower extremity for DVT prophylaxis. Will discuss further orders and plan of care with attending, Dr Waggoner It [facility] Difficult to obtain any further information as patient is currently nonverbal
--- NOTE | 2017-08-05 14:38 | Discharge Summary ---
Discharge Information Date of admission: 08/04/17 16:48 Anticipated date of discharge: 08/05/17 Attending Physician: Kina Perry MD Primary care physician: Mariangel Miles APRN Consults: 08/05/17 07:58 Physician Consult [CONS] Routine Consulting Provider: Mojgan Starkey Reason For Exam: overdose Ordering Provider has Notified Ambulatory Analyst: Yes Comment: generations nurse called - Discharge Diagnosis (1) Intentional diphenhydramine overdose Status: Acute Intentional overdose of Benadryl/suicide attempt Altered mental status with sedation, likely secondary to Benadryl-resolved Tachycardia-resolved Mild Anemia-likely chronic - Laboratory Labs: 08/05/17 04:40 08/05/17 04:40 Laboratory Tests 09/26/15 08/04/17 08/04/17 20:07 14:20 14:20 WBC 3.5 L Hgb 10.9 L 13.7 Plt Count 262 Calcium 9.5 Total Bilirubin 0.60 Icterus Index < 2 AST 26 ALT 19 Alkaline Phosphatase 46 Total Protein 8.6 H Albumin 5.0 Globulin 3.6 Albumin/Globulin Ratio 1.4 TSH Ur Collection Type Urine Color Urine Clarity Urine pH Ur Specific Century Urine Protein Urine Glucose (UA) Urine Ketones Urine Occult Blood Urine Nitrate Urine Bilirubin Urine Urobilinogen Urine WBC Ur Squamous Epith Cells Urine Bacteria Ur Culture Indicated? Urine Test Salicylates < 1.0 L Urine Opiates Screen Ur Oxycodone Screen Urine Methadone Screen Ur Propoxyphene Screen Acetaminophen < 10 L Ur Barbiturates Screen U Tricyclic Antidepress Ur Phencyclidine Scrn Ur Amphetamines Screen U Methamphetamines Scrn U Benzodiazepines Scrn Urine Cocaine Screen U Cannabinoids Screen 08/04/17 08/04/17 08/04/17 14:20 16:05 16:05 WBC Hgb Plt Count Calcium Total Bilirubin Icterus Index AST ALT Alkaline Phosphatase Total Protein Albumin Globulin Albumin/Globulin Ratio TSH 1.27 Ur Collection Type Urine, cath straight Urine Color Yellow Urine Clarity Clear Urine pH 7.0 Ur Specific Century <=1.005 L Urine Protein Negative Urine Glucose (UA) Negative Urine Ketones Negative Urine Occult Blood 3+ A Urine Nitrate Negative Urine Bilirubin Negative Urine Urobilinogen 0.2 Urine WBC 1-3 Ur Squamous Epith Cells 5-10 Urine Bacteria Trace H Ur Culture Indicated? Cult not indicated Urine Test Negative Salicylates Urine Opiates Screen Ur Oxycodone Screen Urine Methadone Screen Ur Propoxyphene Screen Acetaminophen Ur Barbiturates Screen U Tricyclic Antidepress Ur Phencyclidine Scrn Ur Amphetamines Screen U Methamphetamines Scrn U Benzodiazepines Scrn Urine Cocaine Screen U Cannabinoids Screen 08/04/17 08/05/17 08/05/17 16:05 04:40 04:40 WBC Hgb 10.2 L D Plt Count Calcium 8.0 L D Total Bilirubin Icterus Index AST ALT Alkaline Phosphatase Total Protein Albumin Globulin Albumin/Globulin Ratio TSH Ur Collection Type Urine Color Urine Clarity Urine pH Ur Specific Century Urine Protein Urine Glucose (UA) Urine Ketones Urine Occult Blood Urine Nitrate Urine Bilirubin Urine Urobilinogen Urine WBC Ur Squamous Epith Cells Urine Bacteria Ur Culture Indicated? Urine Test Salicylates Urine Opiates Screen Negative Ur Oxycodone Screen Negative Urine Methadone Screen Negative Ur Propoxyphene Screen Negative Acetaminophen Ur Barbiturates Screen Negative U Tricyclic Antidepress Negative Ur Phencyclidine Scrn Negative Ur Amphetamines Screen Negative U Methamphetamines Scrn Negative U Benzodiazepines Scrn Negative Urine Cocaine Screen Negative U Cannabinoids Screen Negative History of Present Illness HPI: She is 22-year-old female who is brought to the emergency room today by EMS for evaluation following an intentional overdose. Reported that patient ingested 15- 17 tablets of Benadryl 25 milligrams per to have. She initially did verbalize that she intentionally overdosed in an attempts to hurt herself. Basic labs were obtained. Sodium was found with elevated at 148, potassium 3.5. Urinalysis shows 3+ blood, 3-5 RBCs with trace bacteria. Urine toxicology is negative. Initially. Patient was tachycardic heart rate in the 122. NG tube was placed and patient was given 25 grams of activated charcoal. IV fluids bolus of 1 liter was initiated. Patient remained somewhat somnolent, unable to answer questions. Given intention renal overdose. The hospitalist services were contacted and accepted patient for admission to the ICU as an outpatient observation. Objective Vital signs: Temperature 98.3 F 08/05/17 08:00 Pulse Rate 66 08/05/17 12:00 Respiratory Rate 19 08/05/17 11:00 Blood Pressure 121/60 08/05/17 10:46 Pulse Oximetry 99 08/05/17 11:00 Rhythm: Sinus Tachycardia Height/Weight/BMI: Height 1.63 m Weight 58.4 kg Body Mass Index 22.1 Hospital Course This is a general summary of the patient's hospital course. For more details refer to the complete medical record. Hospital course: 08/04/2017 Impression Intentional diphenhydramine overdose Altered mentation Tachycardia Plan Admit patient to ICU under the care of Dr. guzmán for intentional overdose with altered mentation. NG tube is placed in the emergency room. Patient was given 25 grams of oral charcoal. Tachycardia has improved with IV fluids. Continue to monitor on telemetry 1/2 NS with 20 KCL for hydration Zofran available as needed for nausea Check CBC and BMP tomorrow morning to follow blood counts, renal function and electrolytes Once patient is medically stable. She will need psychiatric evaluation and recommendations. SCDs to the lateral lower extremity for DVT prophylaxis. Will discuss further orders and plan of care with attending, Dr Waggoner It appears patient's primary care is [facility] Difficult to obtain any further information as patient is currently nonverbal 08/05/2017 Impression intentional overdose of Benadryl with lethargy-lethargy has resolved Major depressive disorder, recurrent episode, severe-per Dr. Starkey Rule out generalized anxiety disorder Tachycardia-resolved Anemia with hemoglobin of 10.2 (was 10.6 in September 2015) Plan Discussed with Dr. Starkey, psychiatrist and she recommends inpatient psychiatric care. The patient was agreeable to inpatient psychiatric care. The patient appears medically stable for transfer to inpatient psychiatry facility today. I did speak with Dr. Merrill at [facility] and he has accepted the patient in transfer. Case management was notified and will help with transportation arrangements. The patient's primary care provider, Mariangel Miles APRN was notified of hospital course and discharge plans. Resuscitation Status: Full Code Discharge Plan - Discharge Disposition Disposition: 65 To Psych Hosp/Unit *Condition: Improved Reason For Visit (Visit label in EMR): OD - Discharge Medications *Discharge Medications: No Action No known Home medications [No home meds] 0 #0 misc - Discharge Packet/Instructions *Diet: Diet as tolerated *Activity: Activity as tolerated *Pain Management/Treatment: Tylenol if needed *Wound Care: Not applicable Additional Instructions: Follow-up with primary care provider Mariangel Miles at [facility] after dismissal *Expected Signs/Symptoms: Drowsiness should improve as Benadryl wears off *Notify Physician if: Not applicable *During Business Hours Contact: for PCP *After Business Hours Contact: at [facility] to have pcp paged - Referrals/Follow Up *Referrals/Follow Up: Mariangel Miles APRN [Primary Care Provider] - - Patient Handouts - Dismissal Complete Discharge Instructions are:: Complete Physician Narrative - Narrative Attestation Narrative: Date: 08/05/17 Time: 7534
[2017-08-05 17:02] VITALS: TEMP 98
[2017-08-05 19:41] VITALS: BP 107/70; O2SAT 99
[2017-08-05] MEDS: ACETAMINOPHEN 500 MG TABLET PO PRN (20:39)
[2017-08-05 20:41] VITALS: PULSE 78; RESP 21
== END 2017-08-05 20:45 ==
LOC: CCU 14:44 → ED 14:44 → SUATTDRO 16:48 → CCU 17:30
PROVIDERS: ADMIT Internal Medicine; ATTEND Internal Medicine